=== PATIENT | male | born 1965 | race Caucasian/White ===

== ENCOUNTER 2025-01-05 06:20 | Day surgery (SDC) | payer OTHER ==
[~2025-01-05] VITALS: Ht 177.8 cm; Wt 84.0 kg
[~2025-01-05 06:20] MED LIST: COZAAR25 MG PO; CRESTOR40 MG PO; LACTATED RINGER'S 1,000 ML IV SCH
[2025-01-05 06:43] VITALS: BP 139/92
[2025-01-05] MEDS ORDERED: KETOROLAC TROMETHAMINE 30 MG/ML VIAL ONE ×2 (06:53→08:19)
--- NOTE | 2025-01-05 06:55 | NUR ---
ANTHONY WITH PT AND WAITING/CAPACITOR TESTER.
[2025-01-05] MEDS ORDERED: HYDROCODONE/ACETA 7.5/325 TAB PO PRN (07:00)
[2025-01-05] MEDS ORDERED: CEFAZOLIN SODIUM 2 GM/20 ML SYR IV SCH (07:00)
[2025-01-05] MEDS ORDERED: LIDOCAINE HCL 1% 5 ML SDV INJ ONE (07:00)
[2025-01-05] MEDS ORDERED: IBLOOD GLUCOSE TEST STRIP 1 EA TEST VI PRN ×2 (07:00→08:45)
[2025-01-05] MEDS ORDERED: DEXAMETHASONE SOD PHOS 4 MG/ML VIAL ONE ×2 (08:19→08:41)
[2025-01-05] MEDS ORDERED: ACETAMINOPHEN 1,000 MG/100 ML VIAL ONE (08:19)
[2025-01-05] MEDS ORDERED: fentaNYL citrate 100 MCG/2 ML VIAL ONE (08:19)
[2025-01-05] MEDS ORDERED: LIDOCAINE HCL 2% 5 ML SDV ONE (08:19)
[2025-01-05] MEDS ORDERED: SODIUM CHLORIDE 0.9% 20 ML IV ONE (08:40)
[2025-01-05] MEDS ORDERED: Ropivacaine HCl 0.5% 30 ML VIAL ONE (08:40)
[2025-01-05] MEDS ORDERED: fentaNYL citrate 50 MCG/ML SDV IV PRN (08:45)
[2025-01-05] MEDS ORDERED: NALOXONE HCL 0.4 MG SYR IV PRN (08:45)
[2025-01-05] MEDS ORDERED: DICLOFENAC SOD 75 MG TABEC PO SCH (09:00)
[2025-01-05] MEDS ORDERED: HYDROCODON-ACE1 EA11 PO (09:16)
[2025-01-05] MEDS ORDERED: DICLOFENAC SODI75 MG PO (09:16)
--- NOTE | 2025-01-05 09:42 | NUR ---
01/05/25 0942 Sheets,Sheron 0910 PT ARRIVED TO PACU ON RA, PT WAKES EASILY AND DENIES CONERNS. VSS. PLAN OF CARE DISCUSSED AND PT MADE AWARE OF BLOCKS IN PLACE. 0942 ICE PLACED.
[2025-01-05 09:50] VITALS: BP 121/81
--- NOTE | 2025-01-05 10:10 | OR ---
[facility] [address], [place] [address] Signed DATE OF OPERATION: 01/05/2025 SURGEON: Horacio Whyte MD PREOPERATIVE DIAGNOSIS: Avascular necrosis, right medial femoral condyle. POSTOPERATIVE DIAGNOSIS: Avascular necrosis, right medial femoral condyle. PROCEDURE PERFORMED: Right knee arthroscopy with microfracture medial femoral condyle. CHALK MOLDING MACHINE OPERATOR: None. ANESTHESIA: General. BLOOD LOSS: Minimal. BRIEF HISTORY: Lynn is a 59-year-old gentleman with pain in his knee. MRI was consistent with a large area of avascular necrosis with an intact cartilage surface. He had no evidence of arthritis. Risks, benefits, and alternatives of surgery were discussed with him. He elected to proceed. Once consent was obtained, he was taken to the operating room. After adequate anesthesia he was placed on the operating room table. The left leg was flexed, abducted, and externally rotated on a well-padded leg new. The leg was placed in leg new and prepped and draped in a standard sterile fashion. The standard inferolateral and superolateral portals were established and the scope was introduced. ARTHROSCOPIC FINDINGS: There was a moderate to significant synovitis throughout the knee. All chondral surfaces were intact, although there was loosening and sponginess of the medial femoral condyle from about 45 degrees to 110 degrees. The ACL and PCL were intact. Lateral compartment was completely intact. DESCRIPTION OF OPERATION: Standard inferomedial portal was established to allow palpation of the cartilage Electronically Signed By: HORACIO WHYTE MD 01/05/25 1010 PATIENT NAME: LYNN DEVINE OPERATIVE REPORT DATE OF : 65 REPORT #: [id number] PHYSICIAN: HORACIO WHYTE MD PCP: TAYLOR SAMANIEGO DO REPORT IS CONFIDENTIAL AND NOT TO BE RELEASED WITHOUT AUTHORIZATION [facility] [address], [place] [address] Signed surfaces and the meniscus. The lesion was defined on examination. Using 1.6 mm K-wire we then performed a microfracture using eight different holes through the cartilage and deep into the bone. The water was turned off and excellent bleeding was noted from all holes. There was no delay. The bleeding was brisk. The scope was then withdrawn. Portals were closed with 3-0 nylon and the wound was dressed with Allevyn, ABD and CHINO wrap. He tolerated the procedure well. All sponge, needle, and instrument counts were correct. Horacio Whyte MD BA/MODL /[id number] Copies: ~ Electronically Signed By: HORACIO WHYET MD 01/05/25 1010 PATIENT NAME: LYNN DEVINE OPERATIVE REPORT DATE OF : 65 REPORT #: [id number] PHYSICIAN: HORACIO WHYTE MD PCP: TAYLOR SAMANIEGO DO REPORT IS CONFIDENTIAL AND NOT TO BE RELEASED WITHOUT AUTHORIZATION
--- NOTE | 2025-01-05 11:13 | NUR ---
UP WITH CRUTCHES NOT FEELING COMFORTABLE REQUESTED WALKER SAYS HE PRACTICED YESTERDAY WITH WALKER. WAS ABLE TO AMB TO BR AND VOIDS QS. NON WT BEARING RLE TOE TOUCH ONLY. BROUGHT CRUTCHES IN BUT HAS WALKER AT HOME TOO. CAUGHT CRUTCH ON GOWN FELL FORWARD AGAINST OVERBED TABLE AND THEN BACK ONTO BED. DENIES HITTING ANYTHING JUST GRABED TABLE AND THEN SAT BACK ON BED. PUT TSHIRT AND SHORTS ON BEFORE GOING TO BR. DID WELL WITH WALKER. COMFORTABLE WITH PT.
--- NOTE | 2025-01-05 11:18 | NUR ---
1110 REVIEWED DC INSTRUCTIONS EACH PRINTED FROM COMPUTER AND DR KAY OFFICE INSTRUCTION SHEET. AFTER HRS NUMBER GIVEN TO PT. STATES THEY UNDERSTAND AND NO QUESTIONS. THEY HAVE ALREADY CHANGED POST OP APPT WITH URIEL.
[2025-01-05] MEDS ORDERED: SEVOFLURANE 250 ML BTL INH ONE (16:27)
== END 2025-01-05 11:05 | disposition home or self-care (01) ==
LOC: DS 06:20
PROVIDERS: ATTEND Specialist
PROC: 0SQC4ZZ Repair Right Knee Joint, Percutaneous Endoscopic Approach (ICD-10-PCS; principal; 2025-01-05 08:30)
DX: M87.151 Osteonecrosis due to drugs, right femur (principal); G89.18 Other acute postprocedural pain; M65.961 Unspecified synovitis and tenosynovitis, right lower leg; Z88.8 Allergy status to other drugs, medicaments and biological substances; Z79.899 Other long term (current) drug therapy
CPT/HCPCS: 01400; 64447; 76942; J0131; J0690; J1100; J1885; J2003; J2405; J2704; J2795; J3010; J7121